=== PATIENT | male | born 1985 | race Caucasian/White ===

== ENCOUNTER → 2016-04-25 | Outpatient (CLI) | payer BC ==
[2016-04-25 12:51] LABS: HIV ANTIBODY NEGATIVE (N); HIV-1 P24 ANTIGEN NEGATIVE (N)
[2016-04-26 11:11] LABS: HEP B CORE IGM ANTIBODY Negative (Negative); HEPATITIS B SURFACE AG Negative (Negative)
[2016-04-26 11:37] LABS: HEPATITIS C ANTIBODY SCREEN Negative (Negative); SYPHILIS IGG WITH REFLEX Negative (Negative)
== END ==
LOC: LAB 11:44
PROVIDERS: ATTEND Family Medicine
DX: Z77.21 Contact with and (suspected) exposure to potentially hazardous body fluids (principal)
CPT/HCPCS: 36415; 86703; 86705; 86709; 86780; 86803; 87340